=== PATIENT | male | born 1955 | race Two or more races ===

== ENCOUNTER → 2020-07-25 | Outpatient (CLI) | payer OTHER ==
--- NOTE | 2020-07-25 16:16 | RADIOLOGY REPORT (SQ) ---
EXAM DESCRIPTION: CT THORACIC SPINE COMBO IMAGES COMPLETED DATE/TIME: 07/25/2020 3:18 pm REASON FOR STUDY: M54.6 PAIN IN THORACIC SPINE M54.6 PAIN IN THORACIC SPINE COMPARISON: None. TECHNIQUE: Axial images acquired through the thoracic spine without and with intravenous contrast. Images reviewed with lung, soft tissue and bone windows. Reconstructed coronal and sagittal MPR imag es reviewed. Images stored on PACS. All CT scanners at this facility use dose modulation, iterative reconstruction, and/or weight based d osing when appropriate to reduce radiation dose to as low as reasonably achievable (ALARA). [facility]: Dose Right [facility]: CareDose [facility]: Dose Right [facility]: Teradose 4D [facility]: [employer] RADIATION DOSE: CT Rad equipment meets quality standard of care and radiation dose reduction techniq ues were employed. CTDIvol: 13.7 mGy. DLP: 1111 mGy-cm. mGy. LIMITATIONS: None. FINDINGS: VISUALIZED LUNGS: 6 mm nodule left posterior costophrenic sulcus, smooth round, noncalcifi ed. No pneumothorax. SOFT TISSUES: Along the right subcutaneous fat, posterior chest wall, a soft tissue subcutaneous abad wang is present measuring about 5.6 cm transverse by 2 cm AP x 9 cm craniocaudad, from the T8 through L1 level. VERTEBRAL BODIES: No fractures. No dislocation. No acute findings. DISCS: No significant disc space narrowing. ALIGNMENT: Normal. TRANSVERSE PROCESSES, POSTERIOR ELEMENTS: Acute non displaced fracture distal tip right L1 transverse process Fracture right transverse process of T12 at the costovertebral joint, nondisplaced Minimally displaced fracture right posterior 11th rib HARDWARE: None in the spine. VISUALIZED RIBS: Fracture posterior right 11th rib. OTHER: Bilateral intrarenal nonobstructive stones, largest is about 9 mm left lower pole kidney, 750 Hounsfield units in density. 1 cm left upper pole renal cortical cyst. IMPRESSION: Acute nondisplaced fractures of the right T12 and L1 transverse processes, minimally dis placed fracture right posterior 11th rib Bilateral intrarenal nonobstructive kidney stones Incidental finding of 6 mm smooth round nodule left posterior costophrenic sulcus, left lung base COMMENT: FLEISCHNER CRITERIA FOR FOLLOW-UP OF PULMONARY NODULES Incidentally detected new nodules in persons 35 or older. HIGH RISK: History of smoking or other known risk factors. 6-8 mm single solid nodule: LOW RISK: CT 6-12 mo; then consider CT 18-24 mo. HIGH RISK: CT 6-12 mo; t hen CT 18-24 mo. TECHNICAL DOCUMENTATION: JOB ID: [id number] Quality ID # [id number]: Final reports with documentation of one or more dose reduction techniques (e.g., Au tomated exposure control, adjustment of the mA and/or kV according to patient size, use of iterative reconstruction technique) 2010 [employer]- All Rights Reserved Reading location - IP/workstation name: [id number]
== END ==
LOC: RAD 12:31
PROVIDERS: ATTEND Nurse Practitioner Family
DX: S22.081A Stable burst fracture of T11-T12 vertebra, initial encounter for closed fracture (principal); S32.019A Unspecified fracture of first lumbar vertebra, initial encounter for closed fracture; S22.31XA Fracture of one rib, right side, initial encounter for closed fracture; X58.XXXA Exposure to other specified factors, initial encounter; N20.0 Calculus of kidney; R91.1 Solitary pulmonary nodule
CPT/HCPCS: 72130; 82565